=== PATIENT | male | born 1965 | race Caucasian/White ===

== ENCOUNTER 2021-04-04 13:42 | Emergency (ER) | payer OTHER ==
[~2021-04-04] VITALS: Ht 180.3 cm; Wt 97.5 kg
== END 2021-04-04 15:23 | disposition home or self-care (01) ==
LOC: ER 13:42
DX: M16.11 Unilateral primary osteoarthritis, right hip (principal); Z88.5 Allergy status to narcotic agent
CPT/HCPCS: 73502; 99283-25

== ENCOUNTER 2021-05-04 10:17 | Emergency (ER) | payer OTHER ==
[~2021-05-04] VITALS: Ht 182.9 cm; Wt 106.6 kg
[2021-05-04] MEDS ORDERED: AMOX500 PO (12:04)
[2021-05-04] MEDS ORDERED: OXAYDO5 M1 PO (12:04)
== END 2021-05-04 12:21 | disposition home or self-care (01) ==
LOC: ER 10:17
DX: J02.0 Streptococcal pharyngitis (principal); F17.200 Nicotine dependence, unspecified, uncomplicated
CPT/HCPCS: 87430; 96365; 96375; 99283-25; J0690; J1100; J1170; J1885; J2405; J7030

== ENCOUNTER 2023-01-14 05:53 | Inpatient (IN) | payer OTHER ==
[2023-01-14] VITALS (10 sets, daily range): BP systolic 97–126; BP diastolic 73–98
[~2023-01-14] VITALS: Ht 180.3 cm; Wt 126.5 kg
[~2023-01-14 05:53] MED LIST: ACET500 PO; AMOX500 PO; Amoxicillin500 MG PO; IBUP400 PO; NAPR500 PO; OXAYDO5 M1 PO; Percocet 5-3251 EACH PO
--- NOTE | 2023-01-14 15:03 | NUR ---
PT ARRIVED TO THE ROOM AT APPROXIMATELY 1045. AT TIME OF ARRIVAL PT REPORTED NUMBNESS TO BLE AND WAS UNABLE TO MOVE LOWER EXTREMITIES. SURGICAL SITE AND EPIDURAL SITE WNL. PT ALERT AND ORIENTED. PT DENIED PAIN. ATTEMPTED TO NOTIFY FAMILY OF ARRIVAL TO THE ROOM X2 PHONE UNANSWERED, PT NOTIFIED. PT ASSESSED FOR IGNITION SOURCES, NO FINDINGS.
--- NOTE | 2023-01-14 19:39 | NUR ---
SHIFT SUMMARY PT IS POD#0 FOR A R JARRELL WITH DR. MILLER. PAIN MANAGED WITH PO AND IV PAIN MEDICATION. PT IS A 1 ASSIST WITH WALKER AND GAIT BELT. PT WORKED WITH THERAPY TODAY. HE HAS BEEN ABLE TO VOID AND IS TOLERATING PO. REPORT GIVEN TO HUNTER PIERSON.
[2023-01-15] VITALS (8 sets, daily range): BP systolic 100–139; BP diastolic 68–93
[2023-01-15 03:39] LABS: BASOPHILS ABSOLUTE AUTO 0.04 K/mm3 (0.00-0.23); BASOPHILS PERCENT AUTO 0 % (0-2); EOSINOPHILS ABSOLUTE AUTO 0.15 K/mm3 (0.00-0.68); EOSINOPHILS PERCENT AUTO 2 % (0-6); Hematocrit 36.2 % (37.0-53.0); Hemoglobin 12.5 g/dL (13.5-17.5); IMMATURE GRAN ABSOLUTE AUTO 0.05 K/mm3 (0.00-0.10); IMMATURE GRAN PERCENT AUTO 1 % (0-1); LYMPHOCYTES ABSOLUTE AUTO 2.22 K/mm3 (0.84-5.20); LYMPHOCYTES PERCENT AUTO 22 % (21-46); MONOCYTES ABSOLUTE AUTO 1.02 K/mm3 (0.16-1.47); MONOCYTES PERCENT AUTO 10 % (4-13); Mean Corpuscular HGB 31.3 pg (26.0-34.0); Mean Corpuscular HGB Conc 34.5 g/dL (31.5-36.5); Mean Corpuscular Volume 91 fL (80-100); Mean Platelet Volume 11.1 fL (9.1-12.4); NEUTROPHILS ABSOLUTE AUTO 6.76 K/mm3 (1.96-9.15); NEUTROPHILS PERCENT AUTO 66 % (41-73); Platelet Count 122 K/mm3 (150-400); RDW Coefficient Variation 12.5 % (11.7-14.2); RDW Standard Deviation 41.4 fL (35.1-46.3); White Blood Cell Count 10.24 K/mm3 (4.00-11.30)
[2023-01-15 03:59] LABS: Bun/Creatinine Ratio 15.5 (12.0-20.0); Calcium, Blood 7.7 mg/dL (8.5-10.1); Creatinine, Blood 1.16 mg/dL (0.60-1.20); Magnesium, Blood 1.6 mg/dL (1.6-2.4)
--- NOTE | 2023-01-15 05:55 | NUR ---
SHIFT SUMMARY NO ACUTE CHANGES NOTED THROUGH THE NIGHT, VSS, ON RA, RESP UNLABORED, TOLERATING PO INTAKE, VOIDING WNL, PAIN MANAGED PER EMAR, RYANG C/D/I, WCTM & REPORT TO DAY RN, CALL LIGHT IN REACH
--- NOTE | 2023-01-15 09:16 | NUR ---
SOB/TACHY PT BECAME SOB AND HR INCREASED TO 140 WHEN AMBULATED TO RESTROOM WITH TINO/PHYS THERAPY. PT RETURNED TO RECLINER. VS OBTAINED. REMAINS TACHY IN 120S. 02 SATS GREATER THAN 90% ON RA. PT REPORTS SYMPTOMS IMPROVED AT THIS TIME. REPORTS BEGAN HAVING SOB WITH EXERTION TWO DAYS PRIOR TO ADMIT. PLACED MSG OUT TO DR MILLER.
--- NOTE | 2023-01-15 11:15 | NUR ---
TRANSFERRED TO PCU 3 REPORT GIVEN TO VALARIE Victor RN. PT IN BED, POSSESSIONS BEDSIDE. REC'D CRITICAL HIGH TROPININ NOTIFICATION FROM LAB, NOTIFIED DR WELCH. REPEAT TROPONIN ORDERED FOR 1400.
--- NOTE | 2023-01-15 11:30 | NUR ---
Received report from 214 RN at bedside as patient arrived via wheelchair. He was placed in PCU 3 and hooked to [facility]. Order for CTA for PE. and has just been picked up. He is alert and oriented and is independnet in room and has been advised to call at all times to transfer. JUANCARLOS. GARRISON. He is on RA and sats >90%. He is able to communicate his needs. Urinal at bedside and calls apprpriately
[2023-01-15 12:43] LABS: Anti-Xa UFH, PHA Monitoring <0.10 IU/mL; International Normalized Ratio 1.09; Prothrombin Time Results 11.4 Sec (9.7-11.5)
--- NOTE | 2023-01-15 13:30 | NUR ---
Results back from CTA and has been placed on Heparin gtt per pharmacy with starting bolus per AUG and verified by Isis Merino. Patient remains independent and calls appropriately. Urinal at bedside and uses appropriately. He remains on RA and sats >90%. Patient denies any SOB currently. Dr Hwang by to see patient.
--- NOTE | 2023-01-15 15:49 | NUR ---
Patiet remains unchanged. Heparin gtt continues at start rate 18 units/kg/min. Continues on RA an d sats >90%. He is independnet in room. Family at bedside currently. He has venous study done in room. Tolerated late lunch well. No further orders.
--- NOTE | 2023-01-15 18:32 | NUR ---
Patient has been doing well. He tolerated pain medication for right hip pain. Remains on RA and sats >90%. Independent in room and calls before getting up, r/t heparin gtt at 18 units/kg/min. Urinal at bedside. Tolerated dinner well and requested tums afterward, and started on PPI. No new concerns from patient. Shaina NUNEZ'jaison AMIN.
--- NOTE | 2023-01-15 21:25 | NUR ---
ASSUMPTION OF CARE PT A&Ox4, CALLS AND COMMUNICATES NEEDS APPROPRIATELY. BP STABLE, SINUS TACH 110-120's, DENIES CP/PRESSURE. SpO2> 92% RA, DENIES SOB. CONTINENT OF URINE, USES URINAL AT BEDSIDE. NO BM AT THIS TIME. PT REPOSITIONS SELF IND. R HIP INCISION WNL, C/D/I. PT ICING HIP PRN. MANAGING PAIN PER EMAR. HEPARIN gtt INFUSING PER EMAR, MANAGED BY PHARMACY. BED IN LOWEST POSITION, CALL LIGHT IN REACH.
[2023-01-16 03:30] VITALS: BP 116/88
[2023-01-16 05:08] LABS: Hematocrit 35.2 % (37.0-53.0); Hemoglobin 12.3 g/dL (13.5-17.5); Mean Corpuscular HGB 31.1 pg (26.0-34.0); Mean Corpuscular HGB Conc 34.9 g/dL (31.5-36.5); Mean Corpuscular Volume 89 fL (80-100); Mean Platelet Volume 11.8 fL (9.1-12.4); Platelet Count 145 K/mm3 (150-400); RDW Coefficient Variation 12.6 % (11.7-14.2); RDW Standard Deviation 41.2 fL (35.1-46.3); Red Blood Cell Count 3.95 M/mm3 (4.30-5.90); White Blood Cell Count 11.01 K/mm3 (4.00-11.30)
[2023-01-16 05:30] LABS: Bun/Creatinine Ratio 15.6 (12.0-20.0); Creatinine, Blood 0.96 mg/dL (0.60-1.20)
--- NOTE | 2023-01-16 07:29 | NUR ---
SHIFT SUMMARY SEE PREVIOUS NOTE. NO ACUTE CHANGES. MANAGED PT'S PAIN PER EMAR. VSS. HEPARIN gtt INFUSING PER EMAR, MANAGED BY PHARMACY.
[2023-01-16 07:44] VITALS: BP 117/88
[2023-01-16 11:29] VITALS: BP 125/88
--- NOTE | 2023-01-16 12:30 | NUR ---
PT CAME BACK IN THE ROOM POST DIALYSIS HAD 4L FLUID OUT PER DIALYSIS NURSE AT 1200NN AT 1220 PT WAS TAKEN TO THE [facility] 10 MINS AFTER LAB TESTER NURSE CALLED AND REPORTED ABORTING THE PROCEDURE PT WAS UNABLE TO LAY FLAT AND WAS UNRESPONSIVE SAME THING THAT HAPPENED THIS MORNING. FAMILY AT THE BEDSIDE AWARE OF WHAT HAPPENED. DR RIOS IN THE ROOM AT THIS TIME HAVING A CONVERSATION WITH THE FAMILY. ESTUARDO PALLIATIVE CARE NURSE ALSO WAS GIVEN AN UPDATE ALSO IN THE ROOM AT THIS TIME. VITALS HRR AFIB 80-90'S, SBP 90'S, SATS ABOVE 95% ON 2L OF O2, AFEBRILE. PT NOW ALERT AND TALKING. WILL CONTINUE TO MONITOR
[2023-01-16 14:53] VITALS: BP 119/82
--- NOTE | 2023-01-16 15:47 | NUR ---
PT TRANSFERRED TO 222 BEDSIDE REPORT GIVEN TO GURPREET PIERSON, ALL BELOGNINGS SENT WITH THE PT, TRANSFERRED VIA BED.
[2023-01-16 19:41] VITALS: BP 96/72
[2023-01-16 19:42] VITALS: BP 105/79
--- NOTE | 2023-01-17 00:41 | NUR ---
DARK BROWN URINE PT HAVING DARK BROWN URINE, DENIES PAIN. REPORTS HX OF KIDNEY STONES. ENCOURAGED TO DRINK WATER VS CURRENT PEPSI. V/U
[2023-01-17 00:45] VITALS: BP 140/89
--- NOTE | 2023-01-17 04:50 | NUR ---
SHIFT SUMMARY POD 3, R JARRELL W/ ACUTE BL PE, INCISION C/D/I, LUNGS CLEAR BL, A&OX4, PLEASANT. PT MEDICATED X2 FOR 7/10 PAIN THIS SHIFT. TELE IN PLACE W/ SINUS TACH 90-100'S CONTINUED PER EQUIPMENT SERVICE ASSOCIATE. NON SYMPTOMATIC. URINE DARK BROWN/RED. PT DRININKING WATER AND URINE VISIBLY TICKET CHOPPER ASSEMBLER ALTHOUGH STILL DARK. PT REPORTS HX OF KIDNEY STONES. WILL PASS ON TO ONCOMING SHIFT. NO ACUTE CHANGES THIS SHIFT. CALL LIGHT W/IN REACH. PT PLANS FOR DISCHARGE TODAY.
[2023-01-17 05:07] VITALS: BP 104/74
[2023-01-17 07:20] VITALS: BP 130/79
[2023-01-17] MEDS ORDERED: ELIQUIS5 M2 PO (11:20)
[2023-01-17] MEDS ORDERED: PANT20 PO (11:21)
[2023-01-17] MEDS ORDERED: DOCU100 PO (11:21)
--- NOTE | 2023-01-17 13:22 | NUR ---
SHIFT SUMMARY POD3 R JARRELL, A/OX4, VSS, TOLERATING PO, DOING WELL WITH THERAPY, AMBULATING WITH FWW AND MINIMAL SBA FOR SAFETY, NO SIGNS OF BLEEDING FROM R HIP DRESSING, PROVIDED 2 ADDITIONAL DRESSINGS SHOULD HE HAVE ANY DRAINAGE BETWEEN NOW AND HIS FOLLOW UP. POWERGLIDED AND IV REMOVED RIGHT BEFORE DISCHARGE, PAIN MEDICATION GIVEN FOR HIS RIDE HOME. DISCUSSED DISCHARGE INFORMATION WITIH HIM INCLUDING HOME CARE, MEDICATIONS, AND FOLLOW UP APPOINTMENTS. DISCUSSED HIS HIGH BLEED RISK RELATING TO HIS NEW ANTICOAGULANT HE IS TAKING. PT HAD NO QUESTIONS AT THIS TIME, ALL PERSONAL POSESSIONS PACKED UP AND HE WAS ESCORTED OUT TO [employer]IVATE [employer] TO GO HOME.
== END 2023-01-17 13:06 | disposition home or self-care (01) | DRG 982 ==
LOC: ORSCMMR 05:53 → ORD 07:30 → SURS 10:38 → PCU 01-15 11:09 → ORSCMMR 01-15 14:24 → SURS 01-15 14:25 → PCU 01-15 14:25 → SURS 01-16 14:30
PROVIDERS: Orthopaedic Surgery; ADMIT Internal Medicine
PROC: 0SR90JA Replacement of Right Hip Joint with Synthetic Substitute, Uncemented, Open Approach (ICD-10-PCS; principal; 2023-01-14 07:30)
DX: I26.94 Multiple subsegmental thrombotic pulmonary emboli without acute cor pulmonale (principal); I82.431 Acute embolism and thrombosis of right popliteal vein; I82.451 Acute embolism and thrombosis of right peroneal vein; I82.441 Acute embolism and thrombosis of right tibial vein; M16.11 Unilateral primary osteoarthritis, right hip; I45.10 Unspecified right bundle-branch block; J44.9 Chronic obstructive pulmonary disease, unspecified; E66.9 Obesity, unspecified; Z68.36 Body mass index [BMI] 36.0-36.9, adult; Z87.891 Personal history of nicotine dependence; Z79.899 Other long term (current) drug therapy; Z88.5 Allergy status to narcotic agent; Z87.442 Personal history of urinary calculi; Z98.890 Other specified postprocedural states; Z93.6 Other artificial openings of urinary tract status
CPT/HCPCS: 36415; 71045; 71260; 72170; 80048; 83735; 84484; 85025; 85027; 85379; 85520; 85610; 85730; 93005; 93010; 93970; 94760; 97110; 97116; 97162; 97530; A9270; C1776; C9113; J0171; J0690; J0735; J1170; J1644; J1885; J2250; J2371; J2405; J2704; J2795; J7120; Q9967

== ENCOUNTER 2024-08-24 18:36 | Inpatient (IN) | payer OTHER ==
[~2024-08-24] VITALS: Ht 180.3 cm; Wt 133.4 kg
[~2024-08-24 18:36] MED LIST changes: +DOCU100 PO; +ELIQUIS5 M2 PO; +PANT20 PO
[2024-08-24] MEDS ORDERED: Acetaminophen 500 MG Tab PO ONE (19:00)
[2024-08-24] MEDS ORDERED: HYDROmorphone HCl/Pf 1MG SYR IV ONE (19:00)
[2024-08-24] MEDS ORDERED: NS 1,000 ML IV SCH (19:05)
[2024-08-24] MEDS ORDERED: Piperacillin/Tazobactam Sod 3.375 GM in NS 100 ML IV SCH (20:00)
[2024-08-24 20:03] LABS: BASOPHILS ABSOLUTE AUTO 0.03 K/mm3 (0.00-0.23); BASOPHILS PERCENT AUTO 0 % (0-2); EOSINOPHILS ABSOLUTE AUTO 0.01 K/mm3 (0.00-0.68); EOSINOPHILS PERCENT AUTO 0 % (0-6); Hematocrit 46.8 % (37.0-53.0); Hemoglobin 16.1 g/dL (13.5-17.5); IMMATURE GRAN ABSOLUTE AUTO 0.06 K/mm3 (0.00-0.10); IMMATURE GRAN PERCENT AUTO 1 % (0-1); LYMPHOCYTES ABSOLUTE AUTO 0.79 K/mm3 (0.84-5.20); LYMPHOCYTES PERCENT AUTO 6 % (21-46); MONOCYTES ABSOLUTE AUTO 1.07 K/mm3 (0.16-1.47); MONOCYTES PERCENT AUTO 8 % (4-13); Mean Corpuscular HGB 31.1 pg (26.0-34.0); Mean Corpuscular HGB Conc 34.4 g/dL (31.5-36.5); Mean Corpuscular Volume 90 fL (80-100); Mean Platelet Volume 10.4 fL (9.1-12.4); NEUTROPHILS ABSOLUTE AUTO 10.99 K/mm3 (1.96-9.15); NEUTROPHILS PERCENT AUTO 85 % (41-73); Platelet Count 198 K/mm3 (150-400); RDW Coefficient Variation 13.5 % (11.7-14.2); RDW Standard Deviation 45.4 fL (35.1-46.3); Red Blood Cell Count 5.18 M/mm3 (4.30-5.90); White Blood Cell Count 12.95 K/mm3 (4.00-11.30)
[2024-08-24 20:24] LABS: Bun/Creatinine Ratio 10.1 (12.0-20.0); Calcium, Blood 8.3 mg/dL (8.5-10.1); Creatinine, Blood 1.38 mg/dL (0.60-1.20); Potassium, Blood 4.4 mmol/L (3.5-5.5)
[2024-08-24 20:33] LABS: Source, Urine Clean Catch
[2024-08-24 20:37] LABS: Bilirubin, Urine Neg (Neg); Blood, Urine 5+ (Neg); Glucose Qualitative, Urine Neg (Neg); Ketones, Urine Neg (Neg); Leukocyte Esterase, Urine 3+ (Neg); Nitrite, Urine Pos (Neg); Protein, Urine 2+ (Neg); Urobilinogen, Urine NORM (Normal)
[2024-08-24 20:39] LABS: Appearance, Urine Hazy (Clear); Color, Urine Yellow (P-Yellow)
[2024-08-24 20:44] LABS: Bacteria Many /hpf; White Blood Cells, Urine 50-100 /hpf (0-5)
[2024-08-24 20:45] LABS: Squamous Epithelial Cells Rare /hpf (Few)
[2024-08-24] MEDS ORDERED: OxyCODONE 5 mg/Acetamin 325 mg TABLET PO PRN (20:50)
[2024-08-24] MEDS ORDERED: Lactated Ringer's 1,000 ML IV SCH ×2 (20:50→21:45)
[2024-08-24 20:51] VITALS: BP 135/83; BP 162/131
[2024-08-24] MEDS ORDERED: FentaNYL Citrate 50 MCG/ML 2 ML Injection IV ONE (21:00)
[2024-08-24] MEDS ORDERED: Enoxaparin 40 MG/0.4 ML SYR SC SCH (21:00)
[2024-08-24] MEDS ORDERED: Lactated Ringer's 1,000 ML IV ONE (22:00)
[2024-08-24 22:33] VITALS: BP 112/84
[2024-08-24] MEDS ORDERED: HYDROmorphone HCl/Pf 1MG SYR IV PRN (23:15)
[2024-08-25] MEDS ORDERED: Calcium Carbonate 500 MG Tab Chew PO PRN (00:50)
[2024-08-25] MEDS ORDERED: Flonase 0.05% N16 GM (02:04)
[2024-08-25 03:16] VITALS: BP 121/85
[2024-08-25 04:00] LABS: BASOPHILS ABSOLUTE AUTO 0.04 K/mm3 (0.00-0.23); BASOPHILS PERCENT AUTO 0 % (0-2); EOSINOPHILS ABSOLUTE AUTO 0.01 K/mm3 (0.00-0.68); EOSINOPHILS PERCENT AUTO 0 % (0-6); Hematocrit 41.9 % (37.0-53.0); Hemoglobin 14.1 g/dL (13.5-17.5); IMMATURE GRAN PERCENT AUTO 1 % (0-1); LYMPHOCYTES ABSOLUTE AUTO 1.49 K/mm3 (0.84-5.20); LYMPHOCYTES PERCENT AUTO 9 % (21-46); MONOCYTES ABSOLUTE AUTO 1.24 K/mm3 (0.16-1.47); MONOCYTES PERCENT AUTO 8 % (4-13); Mean Corpuscular HGB 30.6 pg (26.0-34.0); Mean Corpuscular HGB Conc 33.7 g/dL (31.5-36.5); Mean Corpuscular Volume 91 fL (80-100); Mean Platelet Volume 10.7 fL (9.1-12.4); NEUTROPHILS PERCENT AUTO 82 % (41-73); Platelet Count 176 K/mm3 (150-400); RDW Coefficient Variation 13.7 % (11.7-14.2); RDW Standard Deviation 45.8 fL (35.1-46.3); Red Blood Cell Count 4.61 M/mm3 (4.30-5.90); White Blood Cell Count 16.18 K/mm3 (4.00-11.30)
[2024-08-25 04:23] LABS: Bun/Creatinine Ratio 9.8 (12.0-20.0); Calcium, Blood 7.8 mg/dL (8.5-10.1); Creatinine, Blood 1.53 mg/dL (0.60-1.20); Potassium, Blood 4.2 mmol/L (3.5-5.5)
--- NOTE | 2024-08-25 05:47 | NUR ---
MR OSCAR NEWLY ADMITED TONIGHT FOR KIDNEY STONES. ALERT, ORIENTATED. ABLE TO MAKE NEEDS KNOWN. MEDICATED WITH DILAUDID IV. PATIENT STATES FENTANYL DOES NOT WORK FOR HIM FOR PAIN. HAS NOT PASSED ANY STONES. PLAN IS FOR PUTTING IN A STENT BY IR TODAY. HE IS NOW NPO. VSS ABLE TO MAKE NEEDS KNOWN. CONTINUE CARE
[2024-08-25 11:18] VITALS: BP 115/87
[2024-08-25] MEDS ORDERED: Ondansetron HCl 2 MG / ML 2ML Vial ONE (13:33)
[2024-08-25] MEDS ORDERED: Ondansetron HCl 2 MG / ML 2ML Vial IV PRN (13:40)
[2024-08-25 14:55] VITALS: BP 138/83
[2024-08-25] MEDS ORDERED: Acetaminophen 325 MG TABLET PO PRN (16:45)
--- NOTE | 2024-08-25 17:53 | NUR ---
EOS: PATIENT STILL NOT HAS BEEN TO PRECEDURE. STILL NPO STATUS, HOWEVER, MEAL TRAY SHOULD BE HELD IN PANTRY. PATIETN DEVELOPED FEVER WITH TMAX OF 101. TYLENOL ORDER OBTAINED AND 99.1 ON SHERWIN. PATIENT DOES ENDORSE FEVER, CHILLS, BODY ACHES. PATIENT HAS BEEN PAINFUL, WITH VERY MINIMAL OUTPUT. PROVIDERS AWARE OF DIMINISHED URINE OUTPUT. DENIES CHEST PAIN/PRESSURE OR SOB AT REST. >92% ON RA. SR TO ST THIS EVENING MOSTLY ST 110. UP TO 130 WITH EXERTION. STRAINED URINE WITH EACH OUTPUT NO STONES IDENTIFIED. PATIENT EDUCATED ON COURSE OF ACTION AND PLAN. NO ACUTE CONCERNS FROM THIS RN NOT ENDORSED ABOVE.
--- NOTE | 2024-08-25 18:32 | NUR ---
DOCTOR UPDATE: SPOKE WITH DR. DALE ABOUT PATIENT CONDITION AND STATUS, BATCH OPERATOR TOLD ME ABOUT PATIENT NO LONGER GOING TO PROCEDURE. EXPRESSED MY CONCERNS. ADDITIONALLY DR. PLASCENCIA CALLED TO CHECK ON PATIENT CONDITION UPDATE WITH CONCERNS WELL. NO NEW ORDERS.AT TIME OF NOTE. PLAN OF CARE CONTINUES.
[2024-08-25 20:09] VITALS: BP 106/84
[2024-08-25] MEDS ORDERED: Nicotine 14 MG PATCH TOP ONE (20:50)
[2024-08-25] MEDS ORDERED: Nicotine Polacrilex 2 MG Gum PO PRN (20:55)
[2024-08-25] MEDS ORDERED: Lactobacil 2-S.Thermo-Bifido 1 1 Cap PO SCH (21:00)
[2024-08-25] MEDS ORDERED: Nicotine 14 MG PATCH TOP SCH (21:00)
[2024-08-26] VITALS (12 sets, daily range): BP systolic 120–171; BP diastolic 80–97
[2024-08-26] MEDS ORDERED: Meropenem 2,000 MG in NS 250 ML IV SCH
--- NOTE | 2024-08-26 05:08 | NUR ---
PATIENT STILL COMPLAINING OF LEFT LOWER FLANK PAIN. MEDICATED WITH DILAUDID AND PERCOCET. UP VOIDING IN SMALL AMOUNTS. URINE IS DARK. PLAN TODAY TO PUT IN A URETERAL STENT. UPSET AT BEGINNING OF SHIFT FOR NOT HAVING PROCEDURE DONE YESTERDAY. FEBRILE DURING THE NIGHT. TMAX 102 NPO PLAN FOR STEN TODAY. CONTINUE CARE
[2024-08-26 08:32] LABS: BASOPHILS ABSOLUTE AUTO 0.03 K/mm3 (0.00-0.23); BASOPHILS PERCENT AUTO 0 % (0-2); EOSINOPHILS ABSOLUTE AUTO 0.08 K/mm3 (0.00-0.68); EOSINOPHILS PERCENT AUTO 1 % (0-6); Hematocrit 39.5 % (37.0-53.0); Hemoglobin 13.2 g/dL (13.5-17.5); IMMATURE GRAN ABSOLUTE AUTO 0.05 K/mm3 (0.00-0.10); IMMATURE GRAN PERCENT AUTO 1 % (0-1); LYMPHOCYTES ABSOLUTE AUTO 1.21 K/mm3 (0.84-5.20); LYMPHOCYTES PERCENT AUTO 11 % (21-46); MONOCYTES ABSOLUTE AUTO 0.85 K/mm3 (0.16-1.47); MONOCYTES PERCENT AUTO 8 % (4-13); Mean Corpuscular HGB 30.7 pg (26.0-34.0); Mean Corpuscular HGB Conc 33.4 g/dL (31.5-36.5); Mean Corpuscular Volume 92 fL (80-100); Mean Platelet Volume 10.4 fL (9.1-12.4); NEUTROPHILS ABSOLUTE AUTO 8.54 K/mm3 (1.96-9.15); NEUTROPHILS PERCENT AUTO 79 % (41-73); Platelet Count 144 K/mm3 (150-400); RDW Coefficient Variation 13.7 % (11.7-14.2); RDW Standard Deviation 46.4 fL (35.1-46.3); White Blood Cell Count 10.76 K/mm3 (4.00-11.30)
[2024-08-26 08:48] LABS: Bun/Creatinine Ratio 12.2 (12.0-20.0); Calcium, Blood 8.2 mg/dL (8.5-10.1); Creatinine, Blood 1.23 mg/dL (0.60-1.20); Potassium, Blood 4.1 mmol/L (3.5-5.5)
[2024-08-26] MEDS ORDERED: NS 250 ML IV ONE (16:02)
[2024-08-26] MEDS ORDERED: FentaNYL Citrate 50 MCG/ML 2 ML Injection ONE ×2 (16:05→16:50)
[2024-08-26] MEDS ORDERED: Midazolam HCl 1MG / ML 2ML Vial ONE (16:05)
[2024-08-26] MEDS ORDERED: NS 1,000 ML IV ONE (16:05)
--- NOTE | 2024-08-26 16:32 | NUR ---
END OF SHIFT SUMMARY THE PT IS A&OX4, NPO FOR NEPHROSTOMY PLACEMENT W/ DR. DALE, AND HE IS SBA IN THE ROOM FOR TX D/T LINE MANAGEMENT. THE PT WAS TAKEN BACK TO THE COMPOSITION TEACHER ABOUT 1615. FAMILY AT BEDSIDE AND OPTING TO WAIT IN THE ROOM. THE PT HAS HAD PAIN IN HIS LEFT FLANK THAT HAS BEEN MEDICATED FOR PER EMAR. THIS AFTERNOON HE WAS COMPLAINING OR NAUSEA AND WAS MEDICATED W/ ZOFRAN PER EMAR. ON TELE THE PT HAS BEEN SR, W/ BP STABLE. HE HAS BEEN ON RA W/ SP02 >93%. NO EVENTS THIS MORNING OR AFTERNOON. SEE NOTES FOR UPDATES POST COMPOSITION TEACHER.
[2024-08-26] MEDS ORDERED: Phenylephrine HCl 100 MCG/ML-NS 10MLSYR (1MG/10ML) ONE (16:43)
--- NOTE | 2024-08-26 17:50 | NUR ---
POST SERVICE DESK LEAD THE PT CAME BACK TO PCU VIA WHEELE CHAIR POST LEFT NEPHROSTOMY. DRESSING CLEAN DRY INTACT. THE PT IS VERY SLEEPY AND WAS PLACED ON 2L NC TO HELP MAINTAIN SP02 >93%. THE PT DENIES ANY PAIN, SOB. ON TELE HE REMAINS SR 80'S. BP STABLE. FAMILY AT BEDSIDE AND UPDATED ON CARE. SEE NOTES FOR ANY UPDATES.
[2024-08-27 03:38] VITALS: BP 125/80
--- NOTE | 2024-08-27 06:28 | NUR ---
SHIFT SUMMARY PATIENT ALERT AND ORINETED X4. MEDICATED PER EMAR FOR PAIN AT LEFT NEPHROSTOMY SITE. DENIES ANY CHEST PAIN OR SHORTNESS OF BREATH. VITAL SIGNS STABLE. NO ACUTE ISSUES NOTED OVERNIGHT. WILL CONTINUE TO MONITOR. CALL LIGHT WITHIN REACH.
[2024-08-27 08:27] VITALS: BP 122/83
--- NOTE | 2024-08-27 09:56 | NUR ---
am note this rn assumed care at 0700. vital signs stable. tele sinus rhythm. patient is alert and oriented x4. neuro is intact. perrla. patient is able to make needs known and uses call light appropriately. patient denies pain, chest pain/pressure or shortness of breath. patient left nephrostomy is draining with gravity-coloration yellow. patient urien remains yellow and good output. see shift assessment for further detials.
[2024-08-27 11:25] VITALS: BP 143/108
[2024-08-27 15:42] LABS: Bun/Creatinine Ratio 12.4 (12.0-20.0); Calcium, Blood 8.4 mg/dL (8.5-10.1); Creatinine, Blood 0.89 mg/dL (0.60-1.20); Potassium, Blood 4.1 mmol/L (3.5-5.5)
[2024-08-27 15:51] VITALS: BP 134/96
[2024-08-27] MEDS ORDERED: CefTRIAXone Sodium 2,000 MG in NS 100 ML IV SCH (16:00)
--- NOTE | 2024-08-27 17:19 | NUR ---
shift summary patient nephrostomy tube draining with gravity. flushed it per orders. vital signs stable. medical status no tele. plan to hopefully go home tomorrow. no acute changes this shift. see previous notes
[2024-08-27 19:46] VITALS: BP 124/91
[2024-08-28] MEDS ORDERED: Benzonatate 100 MG Cap PO PRN (02:50)
[2024-08-28 03:22] VITALS: BP 138/103
[2024-08-28 04:21] LABS: BASOPHILS ABSOLUTE AUTO 0.02 K/mm3 (0.00-0.23); BASOPHILS PERCENT AUTO 0 % (0-2); EOSINOPHILS ABSOLUTE AUTO 0.03 K/mm3 (0.00-0.68); EOSINOPHILS PERCENT AUTO 1 % (0-6); Hemoglobin 13.4 g/dL (13.5-17.5); IMMATURE GRAN ABSOLUTE AUTO 0.05 K/mm3 (0.00-0.10); IMMATURE GRAN PERCENT AUTO 1 % (0-1); LYMPHOCYTES ABSOLUTE AUTO 0.76 K/mm3 (0.84-5.20); LYMPHOCYTES PERCENT AUTO 14 % (21-46); MONOCYTES PERCENT AUTO 13 % (4-13); Mean Corpuscular HGB 31.2 pg (26.0-34.0); Mean Corpuscular HGB Conc 35.3 g/dL (31.5-36.5); Mean Corpuscular Volume 89 fL (80-100); NEUTROPHILS ABSOLUTE AUTO 4.02 K/mm3 (1.96-9.15); NEUTROPHILS PERCENT AUTO 72 % (41-73); Platelet Count 167 K/mm3 (150-400); RDW Coefficient Variation 13.4 % (11.7-14.2); RDW Standard Deviation 43.7 fL (35.1-46.3); Red Blood Cell Count 4.29 M/mm3 (4.30-5.90); White Blood Cell Count 5.58 K/mm3 (4.00-11.30)
[2024-08-28 04:43] LABS: Albumin, Blood 2.6 g/dL (3.4-5.0); Albumin/Globulin Ratio 0.7 (0.8-1.8); Bilirubin, Total 0.4 mg/dL (0.1-1.0); Bun/Creatinine Ratio 11.8 (12.0-20.0); Calcium, Blood 8.2 mg/dL (8.5-10.1); Creatinine, Blood 0.85 mg/dL (0.60-1.20); Globulin, Blood 3.9 g/dL (2.2-4.0); Potassium, Blood 4.1 mmol/L (3.5-5.5); Total Protein, Blood 6.5 g/dL (6.4-8.2)
--- NOTE | 2024-08-28 05:56 | NUR ---
SHIFT SUMMARY PATIENT ALERT AND ORIENTED X4. MEDICATED PER EMAR FOR PAIN. PATIENT REPORTED HAVING A PRODUCTIVE COUGH THIS MORNING AND REQUESTED COUGH MEDICINE. CONTACTED DR MAYA WHO ORDERED TESSALON PEARLS. PATIENT'S NEPHROSTOMY TUBE FLUSHED THIS MORNING WITHOUT RESISTANCE. VITAL SIGNS STABLE. WILL CONTINUE TO MONITOR. CALL LIGHT WITHIN REACH.
[2024-08-28 07:34] VITALS: BP 129/92
[2024-08-28] MEDS ORDERED: Trimethoprim/Sulfamethoxazole DS Tab PO SCH (09:00)
[2024-08-28 12:04] VITALS: BP 131/91
[2024-08-28 15:17] VITALS: BP 142/96
--- NOTE | 2024-08-28 15:54 | NUR ---
transfer of care/shift summary patient vital signs stable. medical status no tele. patient is alert and oriented x4. neuro is intact perrla. patient is able to make needs known and uses call light. independent in adls. left nephrostomy tube is draining with gravity. see shift assessment for further detials. plan to go home tomorrow pending if patient has fevers overnight. no acute changes. this rn gave report to ovi evans on medical floor. patient is moving to medical floor room 338
[2024-08-28] MEDS ORDERED: CefTRIAXone Sodium 2,000 MG in NS 100 ML IV SCH (16:00)
--- NOTE | 2024-08-28 17:15 | NUR ---
SHIFT SUMMARY PT TRANSFERED FROM PCU 5 THIS SHIFT TO ROOM 338. PT NOTED TO BE A&OX4 AND IND IN ROOM. PT NOTED TO HAVE L NEPHOROSTOMY TUBE IN PLACE AND YELLOW DRAINAGE NOTED. PLAN IS FOR PT TO DC TOMORROW.
[2024-08-28 19:39] VITALS: BP 127/83
--- NOTE | 2024-08-29 04:45 | NUR ---
PT A&O X4, VS WNL, PT VOIDING, AND UROSTOMY ON LEFT DRAINS CLEAR YELLOW URINE, 25 MLS OUT THIS SHIFT. PT WITH MODERATE PAIN IN THAT LEFT FLANK AT INSERTION SITE. MEDICATED WITH OXYCODONE/TYLENOL 2 TABS X2 THIS SHIFT. PT REMAINS ON IVABX AND PO ABX. PLAN TO D/C HOME TODAY.
[2024-08-29 04:49] VITALS: BP 136/98
[2024-08-29 06:37] LABS: Hematocrit 42.4 % (37.0-53.0); Hemoglobin 14.6 g/dL (13.5-17.5); Mean Corpuscular HGB 31.3 pg (26.0-34.0); Mean Corpuscular HGB Conc 34.4 g/dL (31.5-36.5); Mean Corpuscular Volume 91 fL (80-100); Mean Platelet Volume 10.6 fL (9.1-12.4); Platelet Count 181 K/mm3 (150-400); RDW Coefficient Variation 13.5 % (11.7-14.2); RDW Standard Deviation 45.1 fL (35.1-46.3); Red Blood Cell Count 4.66 M/mm3 (4.30-5.90); White Blood Cell Count 6.89 K/mm3 (4.00-11.30)
[2024-08-29 07:07] LABS: Albumin, Blood 2.7 g/dL (3.4-5.0); Albumin/Globulin Ratio 0.7 (0.8-1.8); Bilirubin, Total 0.5 mg/dL (0.1-1.0); Bun/Creatinine Ratio 12.7 (12.0-20.0); Calcium, Blood 8.6 mg/dL (8.5-10.1); Creatinine, Blood 0.95 mg/dL (0.60-1.20); Globulin, Blood 4.1 g/dL (2.2-4.0); Potassium, Blood 4.1 mmol/L (3.5-5.5); Total Protein, Blood 6.8 g/dL (6.4-8.2)
[2024-08-29 07:30] VITALS: BP 140/97
[2024-08-29] MEDS ORDERED: Percocet 5-3251 EACH PO (12:36)
[2024-08-29] MEDS ORDERED: VISBIOME 112.51 EACH PO (12:36)
[2024-08-29] MEDS ORDERED: SULTRIDS PO (12:37)
--- NOTE | 2024-08-29 12:51 | NUR ---
PT WAS DISCHARGED BY MD WITH STRUCTIONS. ALL PV'S REMOVD BUT NEPH DRAIN WAS LEFT IN PLACE PER OUTPATIENT REMOVAL.
== END 2024-08-29 12:53 | disposition home or self-care (01) | DRG 872 ==
LOC: ER 18:36 → PCU 19:56 → MEDS 08-28 16:19
PROVIDERS: Emergency Medicine; Student in an Organized Health Care Education/Training Program; ADMIT Internal Medicine
PROC: 3E03329 Introduction of Other Anti-infective into Peripheral Vein, Percutaneous Approach (ICD-10-PCS; principal; 2024-08-24)
PROC: 0T9430Z Drainage of Left Kidney Pelvis with Drainage Device, Percutaneous Approach (ICD-10-PCS; 2024-08-26)
DX: A41.9 Sepsis, unspecified organism (principal); N17.9 Acute kidney failure, unspecified; Z16.12 Extended spectrum beta lactamase (ESBL) resistance; N13.2 Hydronephrosis with renal and ureteral calculous obstruction; E87.1 Hypo-osmolality and hyponatremia; Z87.442 Personal history of urinary calculi; Z98.890 Other specified postprocedural states; G47.30 Sleep apnea, unspecified; R65.20 Severe sepsis without septic shock; Z86.711 Personal history of pulmonary embolism; E66.9 Obesity, unspecified; Z96.641 Presence of right artificial hip joint; Z79.01 Long term (current) use of anticoagulants; Z86.718 Personal history of other venous thrombosis and embolism; F17.210 Nicotine dependence, cigarettes, uncomplicated; Z88.5 Allergy status to narcotic agent; Z79.899 Other long term (current) drug therapy; Z93.6 Other artificial openings of urinary tract status; Z68.36 Body mass index [BMI] 36.0-36.9, adult
CPT/HCPCS: 36415; 74176; 76937; 80048; 80053; 81001; 82947; 83605; 85025; 85027; 87040; 87077; 87086; 87186; 94762; 96374; 99152; 99153; 99285-25; A9270; C1729; C1769; C1894; J0696; J1171; J1650; J2185; J2250; J2371; J2405; J2543; J3010; J7030; J7050; J7120; Q9967